=== PATIENT | female | born 1965 | race Caucasian/White ===

== ENCOUNTER 2019-05-07 07:20 | Emergency (ER) | payer MEDICAID ==
[~2019-05-07] VITALS: Ht 162.6 cm; Wt 71.2 kg
[2019-05-07 08:20] LABS: Urine Bacteria NONE SEEN /hpf (None Seen); Urine Blood TRACE /uL (Negative); Urine Specific Gravity 1.015 (1.001-1.035); Urine WBC 2 /hpf (0 - 5)
[2019-05-07 08:44] LABS: Basophils # (auto) 0 uL; Basophils % (auto) 0.6 % (0.0-2.0); Eosinophils # (auto) 0.1 uL; Eosinophils % (auto) 1.3 % (0.0-7.0); Hematocrit 39.2 % (36.0-46.0); Hemoglobin 13.9 g/dL (12.2-16.2); Lymphocytes # (auto) 1.2 uL; Lymphocytes % (auto) 19.4 % (10.0-50.0); Mean Corpuscular Hemoglobin 28.5 pg (28.0-32.0); Mean Corpuscular Hgb Conc. 35.5 g/dL (32.0-36.0); Mean Corpuscular Volume 80.3 fL (80.0-100.0); Monocytes # (auto) 0.5 uL; Monocytes % (auto) 8.5 % (0.0-12.0); Neutrophils # (auto) 4.2 uL; Neutrophils % (auto) 70.2 % (37.0-80.0); Nucleated Red Blood Cells % 0.2 %; Platelet Count (auto) 195 10^3/uL (140-450); Red Blood Cells 4.87 10^6/uL (4.0-5.20); Red Cell Distribution Width 12.9 % (11.8-14.3)
[2019-05-07 09:07] LABS: Albumin 3.7 g/dL (3.4-5.0); BUN/Creatinine Ratio 15.3; Potassium 3.8 mmol/L (3.5-5.1)
[2019-05-07 09:09] LABS: Bilirubin, Total 0.5 mg/dL (0.2-1.0); Total Protein 7.8 g/dL (6.4-8.2)
[2019-05-07] MEDS ORDERED: SODIUM CHLORIDE 0.9% 1,000 ML IV ONE (11:24)
[2019-05-07] MEDS ORDERED: LABETALOL HCL 5 MG/ML 4ML SYRINGE IV ONE (11:30)
[2019-05-07] MEDS ORDERED: ACETAMINOPHEN/CODEINE#3 (300/30mg) TAB PO ONE (11:30)
[2019-05-07] MEDS ORDERED: LACTULOSE 20Gm/30ML SOLN PO ONE (11:30)
[2019-05-07] MEDS ORDERED: PANTOPRAZOLE 40 MG TAB PO ONE (14:30)
[2019-05-07 15:02] VITALS: BP 152/89
== END 2019-05-07 15:28 | disposition home or self-care (01) ==
LOC: ER 07:20
DX: K52.9 Noninfective gastroenteritis and colitis, unspecified (principal); I10 Essential (primary) hypertension; K59.01 Slow transit constipation; K21.9 Gastro-esophageal reflux disease without esophagitis; R51 Headache
CPT/HCPCS: 36415; 80053; 81001; 85025; 96361; 96374; 99284; J7030